=== PATIENT | female | born 1960 | race Caucasian/White ===

== ENCOUNTER → 2017-01-31 | Outpatient (CLI) | payer OTHER | LOC: FIMAGING 14:50 | DX: Z12.31 Encounter for screening mammogram for malignant neoplasm of breast (principal) | CPT/HCPCS: G0202 ==

== ENCOUNTER 2019-03-18 10:48 | Observation (INO) | payer OTHER ==
[2019-03-18] MEDS ORDERED: NS 1,000 ML IV ONE (11:00)
[2019-03-18 11:09] LABS: PLATELET COUNT 177 10^3/uL (150-400)
[2019-03-18] MEDS ORDERED: ONDANSETRON 4 MG/2 ML VIAL ONE (11:13)
[2019-03-18] MEDS ORDERED: HYDROmorphONE/DILAUDID 1 MG/ML INJ ONE (11:13)
[2019-03-18] MEDS ORDERED: ONDANSETRON 4 MG/2 ML VIAL IVP ONE (11:14)
[2019-03-18] MEDS ORDERED: HYDROmorphONE/DILAUDID 1 MG/ML INJ IVP ONE (11:14)
[2019-03-18] MEDS ORDERED: IOPAMIDOL (ISOVUE-300) 100 ML BTL ONE (11:16)
--- NOTE | 2019-03-18 13:10 | EDPHY ---
H & P Stated Complaint: Gen abd pain since this am Time Seen by Provider: 03/18/19 10:55 HPI/ROS: CHIEF COMPLAINT: Abdominal pain HISTORY OF PRESENT ILLNESS: This is a 58-year-old female status post right santiago colectomy for cecal volvulus, laparoscopic cholecystectomy, and section x2. She presents with diffuse abdominal pain that began about 4 hr ago , after she ate breakfast. She has nausea but has not been able to vomit. No diarrhea, no bowel movement today. She has not passed flatus recently. No fever. REVIEW OF SYSTEMS: A ten system review of systems was performed and is negative with the exception of the items mentioned in the HPI. Past medical history: 1. Cecal volvulus 2. Ovarian cyst Past surgical history: 1. Right hemicolectomy for cecal volvulus in 2009 2. Laparoscopic cholecystectomy 3. section x2 Social history: Lives with . 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 No tobacco or alcohol. General Appearance: Alert. Vital signs reviewed. Blood pressure 178/95 in triage. Eyes: Pupils equal and round, no conjunctival injection, no discharge. Anicteric. ENT, Mouth: Mucous membranes are moist, no oropharyngeal erythema or edema. Neck: No lymphadenopathy, supple. Respiratory: Lungs are clear to auscultation; no wheezes, rales, or rhonchi. Cardiovascular: Regular rate and rhythm; no murmur, rub, or gallop. Gastrointestinal: Abdomen is soft with mild diffuse tenderness, no guarding, no masses or organomegaly, bowel sounds normal. Skin: Warm and dry, no rashes on exposed skin, normal color. Back: Nontender to palpation over the thoracolumbar spine. No CVAT. Extremities: No lower extremity edema, no calf tenderness or swelling. Neurological: Alert and oriented. Moving all four extremities easily and equally. Psychiatric: Normal affect. - Personal History Current Tetanus/Diphtheria Vaccine: No Current Tetanus Diphtheria and Acellular Pertussis (TDAP): No - Medical/Surgical History Hx Asthma: No Hx Chronic Respiratory Disease: No Hx Diabetes: No Hx Cardiac Disease: No Hx Renal Disease: No Hx Cirrhosis: No Hx Alcoholism: No Hx HIV/AIDS: No Hx Splenectomy or Spleen Trauma: No Other PMH: colon resection 2009 "twisted" - Social History Smoking Status: Never smoked Constitutional: Initial Vital Signs Temperature (C) 36.5 C 03/18/19 10:51 Heart Rate 90 03/18/19 10:51 Respiratory Rate 24 H 03/18/19 10:51 Blood Pressure 178/95 H 03/18/19 10:51 O2 Sat (%) 99 03/18/19 10:51 O2 Delivery Mode Room Air Allergies/Adverse Reactions: codeine [Codeine] Allergy (Mild, Verified 08/30/10 11:31) Abdominal Pain Home Medications: Medication Instructions Recorded Acetamn/Diphenhydramine 500/25 1 each PO HS PRN 03/18/19 [Tylenol PM (*)] Herbals/Supplements -Info Only 1 ea PO DAILY 03/18/19 Medical Decision Making - Diagnostics Imaging Results: Imaging Impressions Abdomen CT 03/18/19 11:01 Impression: 1. There appears to be an internal hernia in the lower central abdomen/upper pelvis with a "whirling" type appearance of the mesenteric vasculature, and some mild mesenteric edema. 2. Sequela of prior remote postoperative change following correction of a cecal volvulus in August 2010. 3. Status post cholecystectomy with mild chronic intrahepatic bile ductal prominence. Findings were discussed with Benny Sandoval PA-C, who will convey the information to KELSEY ARZOLA MD at 12:03, on 03/18/2019. ED Course/Re-evaluation: 58-year-old female with 4 hr of diffuse crampy severe abdominal pain. Nausea but no vomiting. No fever. History of cecal volvulus status post right hemicolectomy. She is quite uncomfortable with time my initial exam. She received IV fluids and IV pain medication. CT scan of the abdomen ordered shortly after her arrival. CT shows an internal hernia with stranding and mesenteric edema. Dr. Mook Lindquist evaluated the CT scan and the patient. She is being admitted for small bowel obstruction. She remained NPO while in the department. Differential Diagnosis: I considered a differential diagnosis that includes but is not limited to bowel obstruction, mesenteric ischemia, abdominal wall hernia, appendicitis, pyelonephritis/urinary tract infection, ovarian pathology such as torsion or cyst. - Data Points Laboratory Results: Laboratory Results 03/18/19 11:00 03/18/19 11:00 03/18/19 03/18/19 03/18/19 11:04 11:00 11:00 WBC 6.99 10^3/uL 10^3/uL (3.80-9.50) RBC 4.65 10^6/uL 10^6/uL (4.18-5.33) Hgb 13.7 g/dL g/dL (12.6-16.3) POC Hgb 14.6 gm/dL gm/dL (12.6-16.3) Hct 41.5 % % (38.0-47.0) POC Hct 43 % % (38-47) MCV 89.2 fL fL (81.5-99.8) MCH 29.5 pg pg (27.9-34.1) MCHC 33.0 g/dL g/dL (32.4-36.7) RDW 13.4 % % (11.5-15.2) Plt Count 177 10^3/uL 10^3/uL (150-400) MPV 11.8 fL H fL (8.7-11.7) Neut % (Auto) 72.3 % % (39.3-74.2) Lymph % (Auto) 20.9 % % (15.0-45.0) [place] % (Auto) 5.3 % % (4.5-13.0) Eos % (Auto) 0.6 % % (0.6-7.6) Baso % (Auto) 0.6 % % (0.3-1.7) Nucleat RBC Rel Count 0.0 % % (0.0-0.2) Absolute Neuts (auto) 5.06 10^3/uL 10^3/uL (1.70-6.50) Absolute Lymphs (auto) 1.46 10^3/uL 10^3/uL (1.00-3.00) Absolute Monos (auto) 0.37 10^3/uL 10^3/uL (0.30-0.80) Absolute Eos (auto) 0.04 10^3/uL 10^3/uL (0.03-0.40) Absolute Basos (auto) 0.04 10^3/uL 10^3/uL (0.02-0.10) Absolute Nucleated RBC 0.00 10^3/uL 10^3/uL (0-0.01) Immature Gran % 0.3 % % (0.0-1.1) Immature Gran # 0.02 10^3/uL 10^3/uL (0.00-0.10) POC Sodium 139 mEq/L mEq/L (135-145) Sodium 136 mEq/L mEq/L (135-145) POC Potassium 3.7 mEq/L mEq/L (3.3-5.0) Potassium 3.8 mEq/L mEq/L (3.5-5.2) POC Chloride 103 mEq/L mEq/L (97-110) Chloride 102 mEq/L mEq/L (97-110) Carbon Dioxide 23 mEq/l mEq/l (22-31) POC Total CO2 23 mEq/L mEq/L (22-31) Anion Gap 11 mEq/L mEq/L (6-14) POC BUN 15 mg/dL mg/dL (7-23) BUN 16 mg/dL mg/dL (7-23) Creatinine 0.7 mg/dL mg/dL (0.6-1.0) POC Creatinine 0.7 mg/dL mg/dL (0.6-1.0) Estimated GFR > 60 Glucose 134 mg/dL H mg/dL (70-100) POC Glucose 139 mg/dL H mg/dL (70-100) Calcium 9.3 mg/dL mg/dL (8.5-10.4) Medications Given: Discontinued Medications Hydromorphone HCl (Dilaudid) 1 mg IVP EDNOW ONE Stop: 03/18/19 11:15 Last Admin: 03/18/19 11:15 Dose: 1 mg Sodium Chloride (Ns) 1,000 mls @ 0 mls/hr IV EDNOW ONE; Wide Open PRN Reason: Protocol Stop: 03/18/19 11:01 Last Admin: 03/18/19 11:15 Dose: 1,000 mls Ondansetron HCl (Zofran) 4 mg IVP EDNOW ONE Stop: 03/18/19 11:15 Last Admin: 03/18/19 11:15 Dose: 4 mg Point of Care Test Results: Chemistry 03/18/19 11:04 POC Sodium 139 mEq/L mEq/L (135-145) POC Potassium 3.7 mEq/L mEq/L (3.3-5.0) POC Chloride 103 mEq/L mEq/L (97-110) POC Total CO2 23 mEq/L mEq/L (22-31) POC BUN 15 mg/dL mg/dL (7-23) POC Creatinine 0.7 mg/dL mg/dL (0.6-1.0) POC Glucose 139 mg/dL H mg/dL (70-100) ISTAT H&H 03/18/19 11:04 POC Hgb 14.6 gm/dL gm/dL (12.6-16.3) POC Hct 43 % % (38-47) Departure - Departure Disposition: [facility] Inpatient Acute Clinical Impression: Small bowel obstruction Condition: Good
[2019-03-18] MEDS ORDERED: ONDANSETRON 4 MG/2 ML VIAL IVP PRN (14:58)
[2019-03-18] MEDS ORDERED: D5W 1/2 NS W/ 20 KCl/L 1,000 ML IV SCH (15:00)
--- NOTE | 2019-03-18 15:01 | SOAPPROG ---
SOAP Progress Note Assessment/Plan: Assessment: 58-year-old female with severe abdominal pain which is improved with pain medication CT suggested internal hernia but with only minimal dilatation/she has had no vomiting and the pain is not been present for less than 8 hr Past history is cecal volvulus surgery 10 years ago Chest clear/ Cor regular rhythm Abdomen soft and nontender with a right lower quadrant scar Plan: Observation/IV fluid/possible small-bowel follow-through/surgery if worsening or fails to resolve 03/18/19 14:59 Objective: Vital Signs Temp Pulse Resp BP Pulse Ox 36.4 C 57 L 16 101/67 96 03/18/19 13:25 03/18/19 13:25 03/18/19 13:25 03/18/19 13:25 03/18/19 13:25 ICD10 Worksheet Patient Problems: Problems Problem Status Onset Small bowel obstruction Acute
--- NOTE | 2019-03-18 22:44 | GHP ---
[f rep st] HISTORY AND PHYSICAL DATE OF ADMISSION: 03/18/2019 HISTORY OF PRESENT ILLNESS: The patient is a 58-year-old female who is brought to the ER with excruc iating abdominal pain, which has largely resolved by the time of my examination. She has a past hist ory of a cecal volvulus with a right hemicolectomy. CT scan suggests an internal hernia but without complete obstruction. She has been nauseated, but no emesis and no diarrhea. She has had no bowel m ovements or flatus for over 8 hours. PAST SURGICAL HISTORY: Includes a cecal volvulus with right hemicolectomy, ovarian cysts, C-sections and laparoscopic cholecystectomy. SOCIAL HISTORY: She is and does not smoke. ALLERGIES: Codeine. MEDICATIONS: Include Tylenol and herbal supplements. FAMILY HISTORY: Noncontributory. PHYSICAL EXAMINATION: GENERAL: An alert, comfortable 58-year-old female in no acute distress. [place] L SIGNS: She is afebrile. HEENT: No icterus. Pupils are equal and reactive. There are no oral le sions. NECK: Supple. Full range of motion. No bruits, no adenopathy, and no thyromegaly. CHEST: Clear and symmetric. CARDIAC: Regular rhythm without murmurs. ABDOMEN: Soft, minimally distended , not really tender. There are no obvious hernias. She has a well-healed right lower quadrant incis ion. EXTREMITIES: Full range of motion. Full pulses. NEUROLOGIC: Physiologic and symmetric. PSY CHIATRIC: She is alert, oriented, and cooperative. IMPRESSION: Possible early small bowel obstruction with internal hernia. PLAN: Admit for observation, followup imaging and surgery if necessary. Risks and options have been fully discussed and she wishes to proceed. /[id number]/MODL
[2019-03-19 08:10] VITALS: BP 113/69
--- NOTE | 2019-03-19 10:26 | SOAPPROG ---
SOAP Progress Note Assessment/Plan: Assessment/ 58 y Fc hx colectomy for volvulus, csxn x 2, cholecystectomy, admitted c stabbing abdominal pain and possible internal hernia seen on CT. Improved. Pain resolved. +BM's. SBFT recommended. Patient politely refusing and instead has been started on a regular diet. D/c today with outpatient f/u. Discussed s/s of recurrence. Seen with Dr. Lindquist. S: see above. eager to go home. eating eggs. O: alert, nad ctab rrr abd soft, nt, +BS 03/19/19 10:48 Objective: Vital Signs Temp Pulse Resp BP Pulse Ox 36.4 C 69 18 113/69 95 03/19/19 08:09 03/19/19 08:09 03/19/19 08:09 03/19/19 08:09 03/19/19 08:09 03/18/19 03/19/19 03/20/19 05:59 05:59 05:59 Intake Total 1200 Output Total 1350 Balance -150 ICD10 Worksheet Patient Problems: Problems Problem Status Onset Small bowel obstruction Acute
== END 2019-03-19 11:00 | disposition home or self-care (01) ==
LOC: F1N 13:25
PROVIDERS: ADMIT Surgery; ATTEND Surgery
DX: R93.3 Abnormal findings on diagnostic imaging of other parts of digestive tract (principal); K46.9 Unspecified abdominal hernia without obstruction or gangrene; Z90.49 Acquired absence of other specified parts of digestive tract; E86.9 Volume depletion, unspecified
CPT/HCPCS: 74019; 74177; 96361; 96374; 96375; 99285; G0378; 82435-PO; 82565-PO; 82947-PO; 84132-PO; 84295-PO; 84520-PO; 85014-ER; J1170; J2405; Q9967